=== PATIENT | male | born 1985 | race Caucasian/White ===

== ENCOUNTER 2018-07-11 11:39 | Emergency (ER) | payer SELFPAY ==
[2018-07-11 11:41] VITALS: BP 144/81; PULSE 95; RESP 18; TEMP 37.4; O2SAT 97; BMI 19.5
--- NOTE | 2018-07-11 12:05 | RAD_ITS ---
STUDY: X-RAY CHEST REASON FOR EXAM: Male, 33 years old. Cough and fever TECHNIQUE: PA and lateral views of the chest. COMPARISON: 03/18/2016 FINDINGS: The lungs are clear but hyper expanded. There is no demonstrated pleural abnormality. Normal size heart. Normal mediastinum and neri. Normal visualized pulmonary arteries. Normal visualized aortic arch and descending thoracic aorta. Normal visualized thoracic spine. Normal visualized ribs, clavicles, and shoulders. There is no demonstrated abnormality of the visualized soft tissue structures of the upper abdomen. RAD/Chest PA and Lateral IMPRESSION: 1. No acute cardiopulmonary process. Stable exam. Electronically Signed: Acosta Mccarthy MD at 13:38 EST , Service support ,
--- NOTE | 2018-07-11 14:15 | ED.VISSUMM ---
- ER Visit Summary Date of Service: 07/11/18 Chief Complaint: Sore throat, fever, cough History of Present Illness: The patient is a 33 M who has had sore throat fever and cough. He has had this for 5 days. He also complains of nasal congestion, nausea and vomiting earlier in the week. His cough is been nonproductive. He has been using his nebulizer at home but he is out of his inhaler. He did not get a flu shot this year. He did not check his temperature at home. Physical Examination: Vital signs reviewed. HEENT exam shows posterior oropharyngeal erythema only. He has had a tonsillectomy. Neck is supple without lymphadenopathy. Heart is regular rate and rhythm. Lungs clear to auscultation bilaterally. Abdomen soft and nontender. Extremities show no edema. His neurologic exam is normal Test Results: Influenza testing negative. Chest x-ray unremarkable Emergency Department Course and Treatment: This is likely had another viral illness causing this patient's symptoms. I will give him Mucinex D and another albuterol inhaler for home use. I do not feel he requires antibiotics. He will follow-up with his PCP Treatment Plan: [] Disposition: Discharge Impression: Viral URI with cough This note was generated with [employer] dictation software. It may contain incorrect words, spelling, and punctuation that were not noted in review of the chart prior to signing ED Disposition - Plan for ED Patient: Referrals: Javon Reed MD [Primary Care Provider] -
--- NOTE | 2018-07-11 14:16 | ED.DEP ---
ED Disposition - Plan for ED Patient: Disposition: Home or Assisted Living Instructions: ED Upper Resp Infec No Abx Tx Prescriptions: Albuterol Inhaler [Ventolin Hfa] 1 - 2 puff INHALATION Q4H PRN PRN #1 inhaler PRN Reason: Wheezing Guaifenesin/Pseudoephedrne HCl [Mucinex D ER 1,200-120 mg Tab] 1 ea PO BID #14 tab.er.12h Referrals: Javon Reed MD [Primary Care Provider] -
[2018-07-11 14:21] VITALS: BP 135/90; PULSE 87; RESP 16; O2SAT 99
== END 2018-07-11 14:22 | disposition home or self-care (01) ==
PROVIDERS: Emergency Provider Emergency Medicine; Family Provider Family Medicine; PCP Family Medicine
DX: J06.9 Acute upper respiratory infection, unspecified (principal); R05 Cough; R11.2 Nausea with vomiting, unspecified; J45.909 Unspecified asthma, uncomplicated; Z72.0 Tobacco use
CPT/HCPCS: 71046; 87804; 99282

== ENCOUNTER 2019-02-05 12:04 | Emergency (ER) | payer SELFPAY ==
[2019-02-05 12:05] VITALS: BP 116/70; PULSE 76; RESP 17; TEMP 36.7; O2SAT 98; BMI 19.9
--- NOTE | 2019-02-05 12:32 | ED.VIS.DENTA ---
History of Present Illness Chief Complaint: Dental Detail of Chief Complaint: Irritation left thumb secondary to hymenoptera envenomation, wasp Informant: Patient Onset: Yesterday - Dental pain and swelling, Days - Stung by wasp 3 days ago Context: Sudden Onset Timing: Continuous Quality: Right jaw pain and swelling and irritation left thumb Location: See above Current Severity: Moderate Maximum Severity: Moderate Worsened by: Chewing Relieved by: - - Nothing Associated Symptoms: Jaw Swelling, Facial Swellling Narrative: Patient a 33-year-old male whose chief complaint is right lower jaw pain and swelling. Pain started yesterday. States he has pain with chewing. He is able to open and close his mouth completely. He has not noted a change in his voice. He is able to swallow. He has no difficulty breathing. He has no history rheumatic fever, murmur, SBE or IV drug use. He states he was stung by wasp 3 days ago dorsal surface of left thumb near the IP joint. He reports redness and swelling as well as irritation. He has no systemic symptoms of allergic reaction. He reports hives and swelling to penicillin. Is uncertain what reaction he had with sulfa medication. Prior similar symptoms: No Recent Illness/Hospitalization: No - Past Medical History (1) No significant past medical history Status: Acute Past Medical History - Allergies and Home Meds Allergies/Adverse Reactions: Allergies Penicillins Allergy (Verified 02/05/19 12:05) Swelling Sulfa (Sulfonamide Antibiotics) Allergy (Verified 02/05/19 12:05) Swelling Primary Care Physician: Javon Reed MD [Primary Care Provider] - Prior records reviewed: No Past Medical History: None Surgical History: no surgical history Lives: Alone Smoking Status: Current every day smoker Drugs: None Review of Systems General: Denies: Chills, Fever, Malaise, Sweats Eyes: Denies: Visual changes - bilaterally, Blurred Vision - bilaterally ENT: Denies: Rhinorrhea, Sore throat Cardiovascular: Denies: Chest pain, Heart racing Respiratory: Denies: Dyspnea, Cough, Dyspnea on exertion Gastrointestinal: Denies: Abdominal pain, Nausea, Vomiting, Diarrhea Musculoskeletal: Denies: Myalgias, Arthralgias, Neck pain, Back pain Skin: Denies: Rash, Wounds Neurological: Denies: Headache Allergy: Denies: Uticaria, Swelling of the mouth, Swelling of the tongue Physical Exam Vital Signs/Narrative: Vital Signs Temp Pulse Resp BP Pulse Ox 02/05/19 12:05 98.1 F 76 17 116/70 98 Inital Vital Signs reviewed: Yes General: Well nourished, Well developed Head: Normocephalic, Atraumatic ENT: Moist mucous membranes, Nasal congestion, No nasal trauma, No rhinorrhea, TM's clear. Negative for: Sinus tenderness, TM erythema left, TM erythema right Mouth/Throat: Normal oral mucosa, Normal posterior oropharynx, No sublingual edema, Normal Stensen's duct, Dental abscess - Presumed tooth #2, Focal gum swelling, Gingivitis, Tenderness on tooth percussion, Widespread dental decay. Negative for: Normal inspection lips/gums, No dental tenderness, No focal abscess, Apthous ulcer, Dental trauma, Dental avulsion, Dentral fracture, Trismus Neck: Supple, No JVD, Posterior submandibular lymphadenopathy. Negative for: No lymphadenopathy, Nontender, Anterior submandibular lymphadenopathy, Anterior submental lymphadenopathy, Posterior submental lymphadenopathy, Soft tissue swelling, Submandibular soft tissue swelling, Submental soft tissue swelling, Parotid tenderness Cardiovascular: Regular rate, Regular rhythm, No murmurs, Normal S1, Normal S2 Respiratory: No distress, CTA bilaterally, Chest nontender Skin: Normal color, No Trauma, Rash - Dorsal surface left thumb secondary to hymenoptera envenomation. Negative for: Cyanosis, Diaphoresis, Jaundice Neurological: Alert, Oriented x3, Cranial nerves II-XII grossly intact, Normal Strength, Normal Sensation Psychological: Normal affect Diagnostic/Tx/Re-eval - Medical Decision Making Patient with extensive dental decay. The right lower molar is infected. There is decayed involving the pulp. There is swelling of the gum. There is sub-mandibular lymphadenopathy noted. Findings are consistent with dental abscess. Is no evidence of Jose's angina. Furthermore there is no stridor and trachea is midline. Patient has a local reaction secondary to hymenoptera envenomation. Since this occurred 3 days ago but no treatment is indicated. Based on patient's allergies he was treated with clindamycin. He received a dose of clindamycin as well as anti-inflammatory and opiate analgesia. ED Disposition - Plan for ED Patient: Disposition: Home or Assisted Living Diagnosis: Dental abscess, Dental caries extending into dentin, Dental caries extending into pulp, Local allergic reaction due to wasp Instructions: Dental Abscess Prescriptions: Clindamycin HCl [Cleocin] 300 mg PO Q6H #28 cap Transmission Status: Pending to [facility] Naproxen [Naprosyn] 500 mg PO BID #14 tab Transmission Status: Pending to [facility] Hydrocodone Bitart/Apap 5-325 [[place] 5MG-325MG] 1 tablet PO Q6H PRN PRN 3 Days #10 tablet PRN Reason: Pain Transmission Status: Sent to [facility] Referrals: Javon Reed MD [Primary Care Provider] - Brea Zaragoza [NON-STAFF] - 5-7 Days Additional Instructions: Take medication as prescribed. Your prescriptions were sent to [facility] located on [facility]
[2019-02-05] MEDS: HYDROcodone Bitartrate/Apap 5/325 Tablet PO (12:54)
[2019-02-05] MEDS: Ibuprofen 400 MG Tablet 800 MG PO (12:54)
[2019-02-05] MEDS: Clindamycin HCl 150 MG Capsule 300 MG PO (12:54)
== END 2019-02-05 12:58 | disposition home or self-care (01) ==
LOC: ED 12:48
PROVIDERS: Emergency Provider Emergency Medicine; Family Provider Family Medicine; PCP Family Medicine
DX: K04.7 Periapical abscess without sinus (principal); K02.62 Dental caries on smooth surface penetrating into dentin; K02.63 Dental caries on smooth surface penetrating into pulp; T63.461A Toxic effect of venom of wasps, accidental (unintentional), initial encounter; M79.89 Other specified soft tissue disorders; L53.8 Other specified erythematous conditions; F17.200 Nicotine dependence, unspecified, uncomplicated
CPT/HCPCS: 99283

== ENCOUNTER 2020-03-21 10:08 | Emergency (ER) | payer SELFPAY ==
[2020-03-21 10:09] VITALS: BP 127/87; PULSE 92; RESP 18; TEMP 36.6; O2SAT 100; BMI 18.6
--- NOTE | 2020-03-21 10:24 | EKG12_ITS ---
Test Reason : Blood Pressure : / mmHG Vent. Rate : 086 BPM Atrial Rate : 086 BPM P-R Int : 140 ms QRS Dur : 104 ms QT Int : 354 ms P-R-T Axes : 075 066 058 degrees QTc Int : 423 ms Normal sinus rhythm Incomplete right bundle branch block Borderline ECG Confirmed by CATRINA NIX, ALBINA ([id number]), editor newspaper ANNEMARIE VALENCIA ([id number]) on 03/22/2020 1:48:00 PM Referred By: THALIA Confirmed By:ALBINA FRITZ MD
--- NOTE | 2020-03-21 10:25 | CT_ITS ---
STUDY: CTA CHEST REASON FOR EXAM: Male, 34 years old. COUGH, SOB, CHEST TIGHTNESS, BODY ACHES, WATTS, SORE THROAT RADIATION DOSAGE (If Supplied By Facility): CTDIvol = ( 12.18 ) mGy, DLP = ( 165.43 ) mGycm TECHNIQUE: The examination was performed with the intravenous administration of IV 100mL Isovue-370. Post-processing of the angiographic images was performed, with multiplanar reformation and 3D reconstruction. Individualized dose optimization techniques were used for this CT. COMPARISON: None. FINDINGS: Normal enhancement of the main pulmonary artery and right and left pulmonary arteries. Normal enhancement of the bilateral peripheral pulmonary arteries. There is no demonstrated pulmonary embolism. Normal thoracic aorta and visualized great vessels. There is no demonstrated aortic dissection. Normal heart and pericardium. Normal mediastinum. Normal hilar regions. Normal visualized trachea and bronchi. The lungs are well expanded. 4mm RLL nodule. 4mm LLL nodule. Normal pleura. Normal chest wall structures. Normal osseous structures. Normal visualized upper abdomen. CT/CTA Chest W/WO Contrast IMPRESSION: No demonstrated pulmonary embolism or arterial dissection. 4mm RLL nodule. 4mm LLL nodule. Fleischner Society Recommendations for Follow-up and Management of Nodules Smaller than 8 mm Detected Incidentally at Nonscreening CT. Nodule size < or = 4 mm: Low-Risk Patient - No follow-up needed. High-Risk Patient - Follow-up CT at 12 months; if unchanged, no further follow-up. Nodule size > 4-6 mm: Low-Risk Patient - Follow-up CT at 12 months; if unchanged, no further follow-up. High-Risk Patient - Initial follow-up CT at 6-12 months then at 18-24 months if no change. Nodule size > 6-8 mm: Low-Risk Patient - Initial follow-up CT at 6-12 months then at 18-24 months if no change. High-Risk Patient - Initial follow-up CT at 3-6 months then at 9-12 and 24 months if no change. Nodule size > 8 mm: Low-Risk Patient - Follow-up CT at around 3,9 and 24 months. Dynamic contrast-enhanced CT, PET and/or biopsy. High-Risk Patient - Same as for low-risk patient. Low-Risk = Minimal or absent history of smoking and of other known risk factors. High-Risk = History of smoking or of other known risk factors. Electronically Signed: Ryne Thomason, at 12:44 EST Tel , Service support ,
--- NOTE | 2020-03-21 10:26 | ED.DCSUM_ITS ---
History of Present Illness Chief Complaint: Shortness of Breath Informant: Patient Narrative: Patient states that for the past week he has had cough, shortness of breath, night sweats, myalgias and headache. He states that every time he gets to work and takes his temperature he is fine so he is Working. Today his boss is with him and that he needed to go get a Covid test. He tells me that he has a very high pain tolerance and deals with pain on a daily basis with these myalgias are excruciating for him. No sputum production. No diarrhea. No rashes. He reports he has developed a pain with deep inspiration in the right lower lungs. No prior history of DVT PE. Past Medical History - Allergies and Home Meds Allergies/Adverse Reactions: Allergies Penicillins Allergy (Verified 03/21/20 10:11) Swelling Sulfa (Sulfonamide Antibiotics) Allergy (Verified 03/21/20 10:11) Swelling Primary Care Physician: Javon Reed MD [Primary Care Provider] - Prior records reviewed: Yes Past Medical History: - - Asthma Surgical History: no surgical history Smoking Status: Current every day smoker Drugs: None Review of Systems General: Reports: Chills, Malaise, Sweats. Denies: Fever Eyes: Denies: Visual changes - bilaterally, Diplopia ENT: Denies: Rhinorrhea, Sore throat Cardiovascular: Reports: Chest pain. Denies: Palpitations Respiratory: Reports: Dyspnea, Cough. Denies: Dyspnea on exertion Gastrointestinal: Reports: Nausea. Denies: Abdominal pain, Vomiting, Diarrhea, Melena, Hematochezia Genitourinary: Denies: Dysuria, Hematuria, Frequency Musculoskeletal: Reports: Myalgias, Arthralgias. Denies: Back pain, Extremity Pain Skin: Denies: Rash, Wounds Neurological: Reports: Headache. Denies: Weakness, Numbness Physical Exam Vital Signs/Narrative: Vital Signs Temp Pulse Resp BP Pulse Ox 03/21/20 10:09 97.9 F 92 18 127/87 H 100 Inital Vital Signs reviewed: Yes General: Well nourished, Well developed, No Acute Distress Head: Normocephalic, Atraumatic Eyes: Perrl, EOMI ENT: Moist mucous membranes, No rhinorrhea Neck: Supple, Nontender Cardiovascular: Regular rate, Regular rhythm, No murmurs Respiratory: No distress, CTA bilaterally, Chest nontender Abdomen: Soft, Nontender, Nondistended, Normal bowel sounds Back: Nontender, Normal Inspection Extremities: Nontender, No edema Skin: Normal color, No rash Neurological: Alert, Oriented x3, Cranial nerves II-XII grossly intact, Normal S trength, Normal Sensation Psychological: Normal affect, Normal Mood Diagnostic/Tx/Re-eval Clinical Impression(s) from Imaging Studies Chest CTA 03/21/20 10:25 IMPRESSION: No demonstrated pulmonary embolism or arterial dissection. 4mm RLL nodule. 4mm LLL nodule. Fleischner Society Recommendations for Follow-up and Management of Nodules Smaller than 8 mm Detected Incidentally at Nonscreening CT. ----- Nodule size < or = 4 mm: Low-Risk Patient - No follow-up needed. High-Risk Patient - Follow-up CT at 12 months; if unchanged, no further follow-up. Nodule size > 4-6 mm: Low-Risk Patient - Follow-up CT at 12 months; if unchanged, no further follow-up. High-Risk Patient - Initial follow-up CT at 6-12 months then at 18-24 months if no change. Nodule size > 6-8 mm: Low-Risk Patient - Initial follow-up CT at 6-12 months then at 18-24 months if no change. High-Risk Patient - Initial follow-up CT at 3-6 months then at 9-12 and 24 months if no change. Nodule size > 8 mm: Low-Risk Patient - Follow-up CT at around 3,9 and 24 months. Dynamic contrast-enhanced CT, PET and/or biopsy. High-Risk Patient - Same as for low-risk patient. Low-Risk = Minimal or absent history of smoking and of other known risk factors. High-Risk = History of smoking or of other known risk factors. Electronically Signed: Ryne Thomason, at 12:44 EST Tel , Service support , Laboratory Last Values WBC 7.1 K/mm3 (4.4-11.0) 03/21/20 10:50 RBC 4.91 M/mm3 (4.6-6.2) 03/21/20 10:50 Hgb 13.7 g/dL (13.0-16.5) 03/21/20 10:50 Hct 43.0 % (40-54) 03/21/20 10:50 MCV 87.6 fL (80-94) 03/21/20 10:50 MCH 27.9 pg (27.0-32.0) 03/21/20 10:50 MCHC 31.9 g/dL (32-36) L 03/21/20 10:50 RDW Std Deviation 38.1 fl (35.1-43.9) 03/21/20 10:50 RDW Coeff of Anthony 11.9 % (11.6-14.6) 03/21/20 10:50 Plt Count 457 K/mm3 (150-450) H 03/21/20 10:50 MPV 8.1 fl (6.2-12.0) 03/21/20 10:50 Immature Gran % (Auto) 0.300 % (0.0-0.9) 03/21/20 10:50 Neut % (Auto) 70.7 % (47-70) H 03/21/20 10:50 Lymph % (Auto) 19.5 % (19-41) 03/21/20 10:50 [place] % (Auto) 6.0 % (0-10) 03/21/20 10:50 Eos % (Auto) 2.5 % (0-5) 03/21/20 10:50 Baso % (Auto) 1.0 % (0-1) 03/21/20 10:50 Absolute Neuts (auto) 5.0 X10^3/uL (2.0-7.7) 03/21/20 10:50 Absolute Lymphs (auto) 1.39 X10^3/uL (0.83-4.51) 03/21/20 10:50 Nucleated RBC % 0 % (0-5) 03/21/20 10:50 Sodium 141 mmol/L (136-145) 03/21/20 10:50 Potassium 3.5 mmol/L (3.5-5.1) 03/21/20 10:50 Chloride 105 mmol/L (98-107) 03/21/20 10:50 Carbon Dioxide 35.0 mmol/L (21.0-32.0) H 03/21/20 10:50 Anion Gap 1 (5-15) L 03/21/20 10:50 BUN 16 mg/dL (7-18) 03/21/20 10:50 Creatinine 0.77 mg/dL (0.70-1.30) 03/21/20 10:50 Estim Creat Clear Calc 114.87 ml/min 03/21/20 10:50 Est GFR (MDRD) Af Amer 150 mL/min (>60) 03/21/20 10:50 Est GFR (MDRD) Non-Af 124 mL/min (>60) 03/21/20 10:50 BUN/Creatinine Ratio 20.8 RATIO (10-20) H 03/21/20 10:50 Glucose 83 mg/dL (74-106) 03/21/20 10:50 Calcium 8.7 mg/dL (8.5-10.1) 03/21/20 10:50 Total Bilirubin 0.30 mg/dL (0.20-1.00) 03/21/20 10:50 AST 12 U/L (15-37) L 03/21/20 10:50 ALT 35 U/L (16-61) 03/21/20 10:50 Alkaline Phosphatase 98 U/L (45-117) 03/21/20 10:50 Troponin I < 0.015 ng/mL (<0.045) 03/21/20 10:50 Total Protein 7.8 g/dL (6.4-8.2) 03/21/20 10:50 Albumin 3.2 g/dL (3.2-5.0) 03/21/20 10:50 Globulin 4.6 g/dL (2.2-4.2) H 03/21/20 10:50 Albumin/Globulin Ratio 0.7 RATIO (0.9-2.4) L 03/21/20 10:50 - Medical Decision Making White count is normal. CTA of the chest is negative for PE or obvious infiltrates. Covid test will be sent. I will write for the patient to have albuterol. At this point he appears to have a viral syndrome. As his vital signs are stable he is safe for discharge. He is to quarantine. ED Disposition - Plan for ED Patient: Disposition: Home or Assisted Living Diagnosis: Viral syndrome, Dyspnea, Chest pain Instructions: ED Viral Syndrome Prescriptions: Albuterol Inhaler [Ventolin Hfa] 2 puff INHALATION Q4H PRN PRN #1 inhaler PRN Reason: Wheezing Prescription Printed Referrals: Javon Reed MD [Primary Care Provider] - 3-5 Days if not improving
[2020-03-21 11:00] VITALS: BP 114/87; PULSE 83; RESP 16; TEMP 37.2; O2SAT 97
[2020-03-21 11:18] LABS: ALB/GLOB Ratio 0.7 RATIO (0.9-2.4); AST(SGOT) 12 U/L (15-37); Alanine Aminotransfer ALT/SGPT 35 U/L (16-61); Albumin, Serum 3.2 g/dL (3.2-5.0); Alkaline Phosphatase 98 U/L (45-117); Anion Gap 1 (5-15); BUN 16 mg/dL (7-18); BUN/Creat Ratio 20.8 RATIO (10-20); Calcium,Total 8.7 mg/dL (8.5-10.1); Chloride 105 mmol/L (98-107); Creatinine, Serum 0.77 mg/dL (0.70-1.30); EST Glomerular Filtration Rate 124 mL/min (>60); Est Glom Filt Rate - Afr Amer 150 mL/min (>60); Estimated Creatinine Clearance 114.87 ml/min; Globulin 4.6 g/dL (2.2-4.2); Glucose 83 mg/dL (74-106); Potassium 3.5 mmol/L (3.5-5.1); Protein, Total 7.8 g/dL (6.4-8.2); Sodium Level 141 mmol/L (136-145)
[2020-03-21 11:38] LABS: Absolute Lymphocyte Count 1.39 X10^3/uL (0.83-4.51); Basophil# 0.07 X10^3/uL; Eosinophil# 0.18 X10^3/uL; Eosinophils% 2.5 % (0-5); Hemoglobin 13.7 g/dL (13.0-16.5); Lymphocyte # 1.39 X10^3/ul (4.0); Lymphocyte % 19.5 % (19-41); Mean Corp Hgb Conc 31.9 g/dL (32-36); Mean Corpuscular Hgb 27.9 pg (27.0-32.0); Mean Corpuscular Volume 87.6 fL (80-94); Mean Platelet Vol. 8.1 fl (6.2-12.0); Monocyte# 0.43 X10^3/uL; NRBC Flagged by Analyzer 0 % (0-5); Neutrophil # 5.04 X10^3/uL (2.7-7.7); Neutrophil % 70.7 % (47-70); Platelet Count 457 K/mm3 (150-450); RBC Distribution Width CV 11.9 % (11.6-14.6); RBC Distribution Width SD 38.1 fl (35.1-43.9); Red Blood Count 4.91 M/mm3 (4.6-6.2); White Blood Count 7.1 K/mm3 (4.4-11.0)
[2020-03-21 12:00] VITALS: BP 109/68; PULSE 83; RESP 12; TEMP 37.3; O2SAT 99
[2020-03-21] MEDS: Ketorolac 30 MG/ML Syringe IV (12:10)
[2020-03-21] MEDS: 0.9% Normal Saline 1,000 ML 1000 ML IV (12:11)
[2020-03-21 12:12] VITALS: O2SAT 99
[2020-03-21 13:33] VITALS: BP 107/67; PULSE 76; RESP 15; TEMP 37.2; O2SAT 99
== END 2020-03-21 13:34 | disposition home or self-care (01) ==
PROVIDERS: Emergency Provider Emergency Medicine; PCP Family Medicine
DX: B34.9 Viral infection, unspecified (principal); R06.00 Dyspnea, unspecified; R07.9 Chest pain, unspecified; F17.200 Nicotine dependence, unspecified, uncomplicated; Z88.0 Allergy status to penicillin; Z88.2 Allergy status to sulfonamides; J45.909 Unspecified asthma, uncomplicated; R07.1 Chest pain on breathing
CPT/HCPCS: 71275; 80053; 84484; 85025; 87635; 93005; 96361; 96374; 99283; J7030; Q9967; A4216; U0003

== ENCOUNTER 2022-01-13 09:58 | Emergency (ER) | payer MEDICAID, SELFPAY ==
[2022-01-13 09:59] VITALS: BP 187/152; PULSE 95; RESP 20; TEMP 37.1; O2SAT 99
[2022-01-13 10:07] VITALS: O2SAT 95
[2022-01-13 10:11] VITALS: BP 106/68; PULSE 98; RESP 20; TEMP 37.1; O2SAT 96
--- NOTE | 2022-01-13 10:49 | ED.VIS.DYS ---
HPI History of Present Illness Chief Complaint: Shortness of Breath Informant: patient Onset/Context/Timing Onset: Yesterday Context: sudden Timing: Continuous Quality: Positive for Dyspnea on exertion Worsened by: Coughing Relieved by: Nothing Associated Symptoms cough; Negative for rhinorrhea, post nasal drip, ear pain, fever, sore throat, chills, sweats, clear sputum, white sputum, yellow sputum or green sputum Chest Pain: Positive for Continuous and Sharp Narrative Narrative: Patient presents with shortness of breath that began yesterday. Patient states it began rather suddenly. Patient states it has been constant. Patient states he has pain over the right side of his chest. Patient states it is worse with coughing. Patient describes his pain as sharp. Patient states nothing makes it better. Patient denies any sputum production. Patient denies any fevers or chills. Patient denies any sore throat or rhinorrhea. Patient denies any nausea or vomiting. PE Risk Factors: Negative for Cancer, OCP + Smoking + > 35, Prior DVT or PE, Recent immobilization, Recent surgery or Recent travel [facility] Medical History Asthma Home Medications albuterol sulfate 2.5 mg/3 mL (0.083 %) solution for nebulization 2.5 mg (3 mL) inhalation Q4H PRN #25 vials 07/16/15 [Rx Last Taken 07/11/18 2.5 MG] albuterol sulfate 90 mcg/actuation aerosol inhaler 1 - 2 puff Inhalation Q4H PRN PRN Wheezing ##1 07/11/18 [Rx Last Taken Unknown] naproxen 500 mg tablet 500 mg PO BID #14 tabs 02/05/19 [Rx Last Taken Unknown] albuterol sulfate 90 mcg/actuation aerosol inhaler 2 puff inhalation Q4H PRN PRN Wheezing ##1 03/21/20 [Rx Last Taken Unknown] albuterol sulfate 90 mcg/actuation aerosol inhaler (Ventolin HFA) 1 - 2 puff inhalation Q4H PRN PRN Wheezing ##1 01/13/22 [Rx Last Taken Unknown] benzonatate 200 mg capsule 200 mg PO TID PRN cough #15 caps 01/13/22 [Rx Last Taken Unknown] Allergy/AdvReac Type Severity Reaction Status Date / Time Penicillins Allergy Swelling Verified 01/13/22 10:02 Sulfa (Sulfonamide Allergy Swelling Verified 01/13/22 10:02 Antibiotics) Surgical History History of appendectomy History of tonsillectomy Social History Smoking Status: Current some day smoker tobacco type: cigarettes ROS ROS ED Constitutional Constitutional ED: Denies chills or fever(s) Eyes Eyes: Denies blurry vision or change in vision ENT ENT ED: Denies rhinorrhea or sore throat Cardiovascular Cardiovascular: Reports chest pain; Denies palpitations Respiratory/Chest Respiratory/Chest: Reports cough and dyspnea Gastrointestinal Gastrointestinal: Denies nausea or vomiting Genitourinary Genitourinary ED: Denies dysuria or hematuria Musculoskeletal Musculoskeletal: Reports back pain; Denies neck pain Integumentary Denies abscess or rash Neurologic Neurologic: Denies headache(s) or weakness Allergic/Immunologic Allergic/Immunologic ED: Denies mouth swelling or urticaria EXAM Physical Exam Const Vital Signs: 01/13/22 09:59 01/13/22 10:07 01/13/22 10:11 Temperature 98.8 F 98.8 F Temperature Source Temporal Oral Pulse Rate 95 98 Respiratory Rate 20 H 20 H Respiratory Effort Short of Breath Respiratory Pattern Blood Pressure 187/152 H 106/68 Blood Pressure Mean 163 80 Pulse Ox 99 96 Oxygen Delivery Method Room Air Room Air Room Air 01/13/22 11:12 01/13/22 11:53 01/13/22 11:53 Temperature 98.2 F Temperature Source Oral Pulse Rate 87 72 82 Respiratory Rate 17 14 14 Respiratory Effort Respiratory Pattern Normal Blood Pressure 109/86 H 109/86 H Blood Pressure Mean 93 93 Pulse Ox 100 100 Oxygen Delivery Method Room Air Room Air Positive well nourished and well developed General Appearance ED: well developed and NAD HEENT Reports moist mucous membranes Neck supple and no JVD Resp normal respiratory effort Auscultation: rhonchi right lower Cardio regular rate, regular rhythm and no murmurs GI normal to inspection, nondistended, normoactive bowel sounds and non-tender Palpation: soft Extremity normal to inspection General Extremety ED: Negative for edema or tenderness General Extremity: Negative for edema Neuro oriented x3, CN's II-XII intact bilaterally and no sensory deficits noted Sensorium / Orientation: alert Motor Exam: strength 5/5 throughout Psych mental status grossly normal Skin no rashes or lesions noted MDM MDM MDM Narrative Medical decision making narrative: Patient was given a dose of morphine here. Patient was given a DuoNeb aerosol here. EKG was obtained. On my interpretation, it showed a normal sinus rhythm with a rate of 84. [place] interval, QRS interval, and QTc intervals were all normal. [place] was normal. There are no acute ST or T wave changes. PA and lateral chest x-ray was obtained. There are 2 views. On my interpretation, lung dodson are clear. There is normal cardiac silhouette. Bony thorax is normal. There is no acute process noted. Radiologist also interpreted the x-ray and agrees. CBC shows a mild leukocytosis of 13.8. Comprehensive metabolic profile was within normal limits. Patient is feeling better on reevaluation. Patient was advised of his findings. Patient was given a prescription for an albuterol inhaler. Patient was also given a prescription for Tessalon Perles. Patient was instructed to follow-up with his primary care physician in 5 to 7 days. Patient understood and was agreeable with the plan. All questions were answered. Lab Data Attestation: I reviewed the patient's lab results. Labs: Laboratory Results - last 24 hr 01/13/22 01/13/22 10:12 10:12 WBC 13.8 H RBC 5.30 Hgb 15.5 Hct 46.6 MCV 87.9 MCH 29.2 MCHC 33.3 RDW Std Deviation 40.1 RDW Coeff of Anthony 12.5 Plt Count 465 H MPV 8.4 Immature Gran % (Auto) 0.300 Neut % (Auto) 64.1 Lymph % (Auto) 16.1 L Schley % (Auto) 8.3 Eos % (Auto) 10.3 H Baso % (Auto) 0.9 Absolute Neuts (auto) 8.9 H Absolute Lymphs (auto) 2.23 Nucleated RBC % 0 Sodium 140 Potassium 3.7 Chloride 103 Carbon Dioxide 31.0 Anion Gap 6 BUN 18 Creatinine 0.96 Estim Creat Clear Calc 97.39 Est GFR (MDRD) Af Amer 114 Est GFR (MDRD) Non-Af 95 BUN/Creatinine Ratio 18.7 Glucose 94 Calcium 9.4 Total Bilirubin 0.40 AST 27 ALT 43 Alkaline Phosphatase 85 Total Protein 7.8 Albumin 3.8 Globulin 4.0 Albumin/Globulin Ratio 1.0 Radiography Chest X-Ray - ED: 2 View, Read by ED Physician, Read by Radiologist, Normal and No Acute Disease Diagnostic Testing: Clinical Impression(s) from Imaging Studies Chest X-Ray 01/13/22 10:52 IMPRESSION: Normal x-ray examination of the chest. Electronically Signed: Nelson Mcwilliams MD at 11:42 EDT , EKG Initial EKG: Attestation: I personally reviewed and interpreted this EKG as follows: Interpretation: Sinus Rhythm (84) and No Acute Injury Pattern Prior EKG tracings: available for review Prior: Unchanged (03/21/2020) Discharge Plan Triage Chief Complaint: Shortness of Breath Other Complaint: General Illness ED Provider: Eduardo Keane Dx/Rx/DC Orders Clinical Impression: Acute bronchitis, viral, Right-sided chest pain Instructions: ED Bronchitis, No Antibiotic (Adult) Prescriptions: New albuterol sulfate [Ventolin HFA] 90 mcg/actuation HFA aerosol inhaler 1 - 2 puff inhalation Q4H PRN PRN (Reason: Wheezing) Qty: 1 0RF benzonatate 200 mg capsule 200 mg PO TID PRN (Reason: cough) Qty: 15 0RF No Action albuterol sulfate 2.5 MG/3 ML solution for nebulization 2.5 mg inhalation Q4H PRN Qty: 25 0RF Rx Instructions: Use q4 hours and PRN for wheezing albuterol sulfate 1 INHALER inhaler 1 - 2 puff Inhalation Q4H PRN PRN (Reason: Wheezing) Qty: 1 0RF naproxen 500 MG tablet 500 mg PO BID Qty: 14 0RF albuterol sulfate 1 INHALER inhaler 2 puff INHALATION Q4H PRN PRN (Reason: Wheezing) Qty: 1 0RF Rx Instructions: dispense with spacer Primary Care Provider: Javon Reed Referrals: Javon Reed MD [Primary Care Provider] - 3-5 Days Disposition Disposition: Home, Self Care
--- NOTE | 2022-01-13 10:52 | RAD_ITS ---
STUDY: X-RAY CHEST REASON FOR EXAM: Male, 36 years old. Fever and cough TECHNIQUE: PA and lateral views of the chest. COMPARISON: 2018 FINDINGS: The lungs are clear and expanded. There is no demonstrated pleural abnormality. Normal size heart. Normal mediastinum and neri. Normal visualized pulmonary arteries. Normal visualized aortic arch and descending thoracic aorta. Normal visualized thoracic spine. Normal visualized ribs, clavicles, and shoulders. There is no demonstrated abnormality of the visualized soft tissue structures of the upper abdomen. RAD/Chest PA and Lateral IMPRESSION: Normal x-ray examination of the chest. Electronically Signed: Nelson Mcwilliams MD at 11:42 EDT ,
--- NOTE | 2022-01-13 10:52 | EKG12_ITS ---
Test Reason : SOB Blood Pressure : / mmHG Vent. Rate : 084 BPM Atrial Rate : 084 BPM P-R Int : 140 ms QRS Dur : 098 ms QT Int : 348 ms P-R-T Axes : 071 047 041 degrees QTc Int : 411 ms Normal sinus rhythm with sinus arrhythmia Normal ECG Confirmed by CATRINA NIX, ALBINA ([id number]), sports editor CLARITA VARELA ([id number]) on 01/14/2022 10:23:20 AM Referred By: INGRID Confirmed By:ALBINA FRITZ MD
[2022-01-13] MEDS: Ipratropium/Albuterol Sulfate 3 ML AMPUL.NEB INHALATION (11:05)
[2022-01-13 11:12] VITALS: PULSE 87; RESP 17
[2022-01-13 11:17] LABS: Absolute Lymphocyte Count 2.23 X10^3/uL (0.83-4.51); Absolute Neutrophil Count 8.9 X10^3/uL (2.0-7.7); Basophil# 0.13 X10^3/uL; Basophil% 0.9 % (0-1); Eosinophil# 1.42 X10^3/uL; Eosinophils% 10.3 % (0-5); Hematocrit 46.6 % (40-54); Hemoglobin 15.5 g/dL (13.0-16.5); Lymphocyte # 2.23 X10^3/ul (0.83-4.51); Lymphocyte % 16.1 % (19-41); Mean Corp Hgb Conc 33.3 g/dL (32-36); Mean Corpuscular Hgb 29.2 pg (27.0-32.0); Mean Corpuscular Volume 87.9 fL (80-94); Mean Platelet Vol. 8.4 fl (6.2-12.0); Monocyte# 1.14 X10^3/uL; Monocyte% 8.3 % (0-10); NRBC Flagged by Analyzer 0 % (0-5); Neutrophil # 8.85 X10^3/uL (2.7-7.7); Neutrophil % 64.1 % (47-70); Platelet Count 465 K/mm3 (150-450); RBC Distribution Width CV 12.5 % (11.6-14.6); RBC Distribution Width SD 40.1 fl (35.1-43.9); White Blood Count 13.8 K/mm3 (4.4-11.0)
[2022-01-13 11:28] LABS: AST(SGOT) 27 U/L (15-37); Alanine Aminotransfer ALT/SGPT 43 U/L (16-61); Albumin, Serum 3.8 g/dL (3.2-5.0); Alkaline Phosphatase 85 U/L (45-117); Anion Gap 6 (5-15); BUN 18 mg/dL (7-18); BUN/Creat Ratio 18.7 RATIO (10-20); Calcium,Total 9.4 mg/dL (8.5-10.1); Chloride 103 mmol/L (98-107); Creatinine, Serum 0.96 mg/dL (0.70-1.30); EST Glomerular Filtration Rate 95 mL/min (>60); Est Glom Filt Rate - Afr Amer 114 mL/min (>60); Estimated Creatinine Clearance 97.39 ml/min; Glucose 94 mg/dL (74-106); Potassium 3.7 mmol/L (3.5-5.1); Protein, Total 7.8 g/dL (6.4-8.2); Sodium Level 140 mmol/L (136-145)
[2022-01-13 11:53] VITALS: BP 109/86; PULSE 72; PULSE 82; RESP 14; TEMP 36.8; O2SAT 100
[2022-01-13] MEDS: Morphine 4 MG/ML Syringe IV (11:55)
== END 2022-01-13 13:18 | disposition home or self-care (01) ==
PROVIDERS: Emergency Provider Emergency Medicine; PCP Family Medicine; Visit Provider Emergency Medicine
DX: J20.9 Acute bronchitis, unspecified (principal); F17.210 Nicotine dependence, cigarettes, uncomplicated; R07.9 Chest pain, unspecified; J45.909 Unspecified asthma, uncomplicated
CPT/HCPCS: 71046; 80053; 85025; 87428; 93005; 94640; 96374; 99284; A4216